=== PATIENT | female | born 1980 | race Caucasian/White ===

== ENCOUNTER 2021-01-01 08:33 | Inpatient (IN) | payer MEDICAID, OTHER ==
[2021-01-01] MEDS ORDERED: Acetaminophen 500 MG Tab PO ONE (08:45)
[2021-01-01] MEDS ORDERED: Dextrose 5%-Lactated Ringers 1,000 ML IV SCH (08:45)
[2021-01-01] MEDS ORDERED: Bupivacaine 0.5% 50 ML MDV ONE ×2 (09:00→09:01)
[2021-01-01] MEDS ORDERED: Meropenem 500 MG SDV ONE (09:00)
[2021-01-01] MEDS ORDERED: Lidocaine 1% with EPINEPHrine 1:100,000 50 ML MDV ONE (09:00)
[2021-01-01] MEDS ORDERED: Propofol 200 MG/20 ML SDV ONE (09:29)
[2021-01-01] MEDS ORDERED: Succinylcholine 200 MG/10 ML MDV ONE (09:29)
[2021-01-01] MEDS ORDERED: Neostigmine Methylsulfate 1 MG/ML 5 ML Syringe ONE (09:29)
[2021-01-01] MEDS ORDERED: Rocuronium 50 MG/5 ML Vial ONE (09:29)
[2021-01-01] MEDS ORDERED: Ondansetron 4 MG/2 ML SDV ONE (09:29)
[2021-01-01] MEDS ORDERED: fentaNYL 250 MCG/5 ML SDV ONE ×2 (09:29→12:30)
[2021-01-01] MEDS ORDERED: Glycopyrrolate 0.2 MG/ML 5 ML MDV ONE (09:29)
[2021-01-01] MEDS ORDERED: Dexamethasone 4 MG/ML SDV ONE (09:29)
[2021-01-01] MEDS: cefOXitin 2 GM in Sodium Chloride 0.9% 50 ML IV ONE ×2 (09:40→11:51)
--- NOTE | 2021-01-01 09:58 | PCM.HP.2 ---
H&P History of Present Illness - General Date of Service: 01/01/21 Source of Information: Patient, EMS Notes Reviewed History Limitations: Reports: No Limitations - History of Present Illness Initial Comments - Free Text/Narative: Gisell was transferred by ambulance for a Volvulus. 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 She has had a C Section and an Open Repair of Incisional Hernia with mesh about 3 - 4 years ago. Reports sudden onset of pain early this morning but states she felt a little more indigestion in the past 4 days. Onset of Symptoms: Reports: Today Symptom Onset Date: 01/01/21 Duration of Symptoms: Reports: Hour(s): Location: Reports: Abdomen Quality: Reports: Pressure, Sharp, Stabbing, Throbbing Severity: Severe Improves with: Reports: Medication Worsens with: Reports: None Context: Reports: Sick Contact Associated Symptoms: Reports: Nausea/Vomiting, Weakness Abdomen Pain Score (Numeric/FACES): 7 - Related Data Allergies/Adverse Reactions: Allergies Allergy/AdvReac Type Severity Reaction Status Date / Time NSAIDS (Non-Steroidal Allergy Other Verified 01/01/21 08:46 Anti-Inflamma Home Medications: Home Meds Acetaminophen 325 mg PO Q4H PRN 01/01/21 [History] Amphetamine/Dextroamphetamine [Adderall XR] 15 mg PO BID 01/01/21 [History] Cholecalciferol (Vitamin D3) [Vitamin D] 1 tab PO BID 01/01/21 [History] Cholecalciferol (Vitamin D3) [Vitamin D] 5,000 units PO DAILY 01/01/21 [History] DULoxetine [Cymbalta] 60 mg PO DAILY 01/01/21 [History] Dextrose [Glucose] 4 gm PO ASDIRECTED PRN 01/01/21 [History] Ferrous Sulfate 325 mg PO BID 01/01/21 [History] Gabapentin [Neurontin] 1,200 mg PO TID 01/01/21 [History] Lidocaine 5% [Lidoderm 5%] 1 applic TOP DAILY 01/01/21 [History] Lisdexamfetamine [Vyvanse] 60 mg PO DAILY 01/01/21 [History] Omeprazole 20 mg PO BID 01/01/21 [History] QUEtiapine [SEROquel] 100 mg PO BEDTIME 01/01/21 [History] SUMAtriptan [Imitrex] 100 mg PO Q2H PRN 01/01/21 [History] Sennosides/Docusate Sodium [Senokot-S Tablet] 1 tab PO BID PRN 01/01/21 [History] Sucralfate [Carafate] 1 gm PO Q6H PRN 01/01/21 [History] Topiramate [Topamax] 25 mg PO BID 01/01/21 [History] busPIRone [Buspar] 15 mg PO TID 01/01/21 [History] hydrOXYzine HCL [Hydroxyzine HCl] 50 mg PO TID 01/01/21 [History] tiZANidine [Zanaflex] 8 mg PO Q8H PRN 01/01/21 [History] Past Medical History Gastrointestinal History: Reports: None 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 L4, L5, S1 Neurological History: Reports: Migraines, Seizure Psychiatric History: Reports: ADD, ADHD, Addiction, Anxiety, Depression, OCD, Panic Attack, PTSD Endocrine/Metabolic History: Reports: Other (See Below) Other Endocrine/Metabolic History: hypoglycemia that leads to seizures Hematologic History: Reports: Anemia - Infectious Disease History Infectious Disease History: Reports: Chicken Pox - Past Surgical History Head Surgeries/Procedures: Reports: None GI Surgical History: Reports: Bariatric Procedure, Hernia, Abdominal Other GI Surgeries/Procedures: RNY 2005 Endocrine Surgical History: Reports: None Neurological Surgical History: Reports: None Musculoskeletal Surgical History: Reports: None Social & Family History - Family History Family Medical History: No Pertinent Family History - Tobacco Use Tobacco Use Status *Q: Current Every Day Tobacco User Years of Tobacco use: 8 Packs/Tins Daily: 0.5 - Caffeine Use Caffeine Use: Reports: Soda - Recreational Drug Use Recreational Drug Use: No H&P Review of Systems - Review of Systems: Review Of Systems: Comprehensive ROS is negative, except as noted in HPI. Exam - Exam Exam: See Below - Vital Signs Vital Signs: Last Vital Signs Temp 97.7 F 01/01/21 08:57 Pulse 92 01/01/21 08:45 Resp 16 01/01/21 08:57 BP 129/91 H 01/01/21 08:57 Pulse Ox 92 L 01/01/21 08:57 Weight: 159 lb 9.6 oz - Exam General: Moderate Distress HEENT: Conjunctiva Clear, Hearing Intact, Mucosa Moist & [place] Neck: Supple, Trachea Midline Lungs: Clear to Auscultation, Normal Respiratory Effort Cardiovascular: Regular Rate, Regular Rhythm GI/Abdominal Exam: Distended (slightly ), Tender (left upper, mid and lower quadrants. ) (Female) Exam: Deferred Rectal (Female) Exam: Deferred Back Exam: Normal Inspection, Full Range of Motion Extremities: Normal Inspection, Normal Range of Motion, No Pedal Edema Skin: Warm, Dry, Intact Neurological: Cranial Nerves Intact, Reflexes Equal Bilateral, Normal Gait Neuro Extensive - Mental Status: Alert, Oriented x3 Neuro Extensive - Motor, Sensory, Reflexes: Normal Gait Psychiatric: Alert, Normal Affect, Normal Mood - Patient Data Lab Results Last 24 hrs: Laboratory Results - last 24 hr 01/01/21 01/01/21 01/01/21 Range/Units 08:47 08:47 08:47 Magnesium 1.7 L (1.8-2.4) mg/dL Ferritin 4 L (8-388) ng/ml Vitamin B12 147 L (193-986) pg/ml Vitamin D 25-Hydroxy (30-100) ng/mL Folate (8.6-58.9) ng/ml HCG, Qual 01/01/21 01/01/21 01/01/21 Range/Units 08:47 08:47 09:23 Magnesium (1.8-2.4) mg/dL Ferritin (8-388) ng/ml Vitamin B12 (193-986) pg/ml Vitamin D 25-Hydroxy 29.4 L (30-100) ng/mL Folate 16.4 (8.6-58.9) ng/ml HCG, Qual Negative Sepsis Event Note - Focused Exam Vital Signs: Vital Signs Temp Pulse Resp BP Pulse Ox 01/01/21 08:57 97.7 F 16 129/91 H 92 L 01/01/21 08:45 97.7 F 92 16 129/91 H 97 - Problem List (1) Volvulus of colon SNOMED Code(s): 6199787 ICD Code: K56.2 - VOLVULUS Status: Acute Current Visit: Yes Problem List Initiated/Reviewed/Updated: Yes Orders Last 24hrs: Active Orders 24 hr Category Date Time Status COPPER, SERUM Stat Lab 01/01/21 08:47 Received VITAMIN A, SERUM Stat Lab 01/01/21 08:47 Received VITAMIN B1 (THIAMINE), BLOOD Stat Lab 01/01/21 08:47 Received ZINC, PLASMA OR SERUM Stat Lab 01/01/21 08:47 Received Dextrose 5%-Lactated Ringers 1,000 ml Med 01/01/21 08:45 Active IV ASDIRECTED Ketamine [Ketalar] Med 01/01/21 10:30 Active 26 mg IV ASDIRECTED Ketamine [Ketalar] 50 mg Med 01/01/21 10:30 Active Sodium Chloride 0.9% [Normal Saline] 49.5 ml IV ASDIRECTED Magnesium Sulfate [Magnesium Sulfate 50%] 2 gm Med 01/01/21 10:30 Active Sodium Chloride 0.9% [Normal Saline] 100 ml IV ASDIRECTED Magnesium Sulfate [Magnesium Sulfate 50%] 2.3 gm Med 01/01/21 10:30 Active Sodium Chloride 0.9% [Normal Saline] 250 ml IV ONETIME Ropivacaine [Naropin 0.5%] 36 ml Med 01/01/21 10:30 Active dexAMETHasone [Decadron] 8 mg EPINEPHrine [Adrenalin] 0.4 mg Sodium Chloride 0.9% [Normal Saline] 41.6 ml NERVRT ASDIRECTED cefOXitin [Mefoxin] 2 gm Med 01/01/21 11:00 Active Sodium Chloride 0.9% [Normal Saline] 50 ml IV ONETIME Sequential Compression Device [OM.PC] Stat Oth 01/01/21 08:37 Ordered EKG 12 Lead [EK] Stat Ther 01/01/21 08:45 Ordered Medication Orders Ropivacaine 36 ml/Dexamethasone 8 mg/Epinephrine HCl 0.4 mg/ Sodium Chloride 41.6 ml 0 ml NERVRT ASDIRECTED ERLIN Dextrose/Lactated Ringer's (Dextrose 5%-Lactated Ringers) 1,000 mls @ 100 mls/hr IV ASDIRECTED ERLIN Last Admin: 01/01/21 09:23 Dose: 100 mls/hr Documented by: EDWARD Cefoxitin Sodium 2 gm/ Sodium (Chloride) 50 mls @ 100 mls/hr IV ONETIME ONE Stop: 01/01/21 11:29 Last Admin: 01/01/21 09:40 Dose: 100 mls/hr Documented by: [id number] Ketamine HCl 50 mg/ Sodium (Chloride) 50 mls @ 15.6 mls/hr IV ASDIRECTED ERLIN Magnesium Sulfate 2 gm/ Sodium (Chloride) 104 mls @ 208 mls/hr IV ASDIRECTED ERLIN Magnesium Sulfate 2.3 gm/ (Sodium Chloride) 254.6 mls @ 31.825 mls/hr IV ONETIME ONE Stop: 01/01/21 18:29 Ketamine HCl (Ketamine 500 Mg/5 Ml Mdv) 26 mg IV ASDIRECTED ERLIN Assessment: Volvulus/Partial Small Bowel Obstruction SP RNY Gastric Bypass Surgery Plan: Sheduled/Consent for Exploratory Laparotomy for Release of Partial Small Bowel Obstruction and Voluvus. Case to Follow 01/01/21 NPO General Anesthesia Allan Johnson MD Admit as inpatient Length of stay at least 3 nights and 4 days pending recovery from surgery Lianne Joyce 01/01/2021
[2021-01-01] MEDS ORDERED: Naloxone 0.4 MG/ML SDV IV PRN (10:00)
[2021-01-01] MEDS: HYDROmorphone/Normal Saline 15 MG/30 ML PCA IV PRN (10:08)
[2021-01-01] MEDS ORDERED: Ketamine 500 MG/5 ML MDV IV SCH (10:30)
[2021-01-01] MEDS ORDERED: Ketamine 50 MG in Sodium Chloride 0.9% 49.5 ML IV SCH (10:30)
[2021-01-01] MEDS ORDERED: Magnesium Sulfate 2 GM in Sodium Chloride 0.9% 100 ML IV SCH (10:30)
[2021-01-01] MEDS ORDERED: MAGNESIUM SULFATE IV ONE (10:30)
[2021-01-01] MEDS ORDERED: Ropivacaine 36 ML, dexAMETHasone 8 MG, EPINEPHrine 0.4 MG, Sodium Chloride 0.9% 41.6 ML NERVRT SCH ×4 (10:30)
[2021-01-01] MEDS ORDERED: SODIUM CHLORIDE 0.9% IV ONE (10:30)
[2021-01-01] MEDS ORDERED: fentaNYL 100 MCG/2 ML SDV IVPUSH ONE (13:58)
[2021-01-01] MEDS ORDERED: hydrOXYzine HCL 100 MG/2 ML SDV IM ONE (13:58)
[2021-01-01] MEDS: Dextrose 5%-Lactated Ringers 1,000 ML IV SCH ×2 (15:57→23:38)
[2021-01-01] MEDS ORDERED: Labetalol 20 MG/4 ML Syringe IVPUSH PRN (16:00)
[2021-01-01] MEDS ORDERED: Albuterol/Ipratropium 3.0-0.5 MG/3 ML Neb Soln INH PRN (16:00)
[2021-01-01] MEDS ORDERED: Ondansetron 4 MG/2 ML SDV IVPUSH PRN (16:00)
[2021-01-01] MEDS ORDERED: Acetaminophen 500 MG Tab PO PRN (16:00)
[2021-01-01] MEDS ORDERED: Calcium Gluconate 10% 1 GM/10 ML SDV IVPUSH PRN (16:00)
[2021-01-01] MEDS ORDERED: Metoclopramide 10 MG/2 ML SDV IVPUSH PRN (16:00)
[2021-01-01] MEDS ORDERED: diphenhydrAMINE 50 MG/ML SDV IVPUSH PRN (16:00)
[2021-01-01] MEDS ORDERED: MVI, Adult with Vitamin K 10 ML, Thiamine 200 MG, Zinc/Copper/Manganese/Selenium 1 ML i... IV SCH ×4 (16:30)
[2021-01-01] MEDS ORDERED: Pantoprazole 40 MG Vial IVPUSH SCH (17:00)
[2021-01-01] MEDS: cefOXitin 2 GM in Sodium Chloride 0.9% 50 ML IV SCH (17:10)
[2021-01-01] MEDS: Acetaminophen 500 MG Tab PO SCH (17:12)
[2021-01-01] MEDS: Gabapentin 400 MG Cap PO SCH (21:30)
[2021-01-01] MEDS: Albuterol/Ipratropium 3.0-0.5 MG/3 ML Neb Soln INH SCH (21:30)
[2021-01-01] MEDS: QUEtiapine 25 MG Tab PO SCH (21:31)
[2021-01-01] MEDS: Topiramate 25 MG Tab PO SCH (21:31)
[2021-01-02] MEDS: cefOXitin 2 GM in Sodium Chloride 0.9% 50 ML IV SCH ×4 (00:23→18:21)
[2021-01-02] MEDS: Acetaminophen 500 MG Tab PO SCH ×3 (02:07→19:43)
[2021-01-02] MEDS ORDERED: Iopamidol 612 MG/ML 50 ML SDV PO STA (03:12)
[2021-01-02] MEDS: hydrOXYzine HCL 100 MG/2 ML SDV IM PRN ×2 (04:01→19:52)
[2021-01-02] MEDS: Dextrose 5%-Lactated Ringers 1,000 ML IV SCH (06:20)
[2021-01-02] MEDS: Albuterol/Ipratropium 3.0-0.5 MG/3 ML Neb Soln INH SCH ×4 (07:12→21:37)
[2021-01-02] MEDS: HYDROmorphone/Normal Saline 15 MG/30 ML PCA IV PRN (07:42)
[2021-01-02] MEDS ORDERED: Ondansetron 4 MG Tab.DIS PO PRN (07:51)
[2021-01-02] MEDS ORDERED: Dextrose 5%-Lactated Ringers 1,000 ML IV SCH (08:00)
[2021-01-02] MEDS: Topiramate 25 MG Tab PO SCH ×2 (08:30→21:37)
[2021-01-02] MEDS: Gabapentin 400 MG Cap PO SCH ×3 (08:30→21:37)
[2021-01-02] MEDS: DULoxetine 30 MG Cap PO SCH (08:30)
[2021-01-02] MEDS: Cyanocobalamin (Vitamin B12) 1,000 MCG/ML SDV IM SCH (08:31)
[2021-01-02] MEDS: SCOPOLAMINE PATCH CHECK TOP SCH (08:31)
--- NOTE | 2021-01-02 09:14 | CR ---
UGI Limited HISTORY: Postbariatric surgery FINDINGS: Patient swallowed water-soluble contrast. Upright views of the abdomen show no evidence of extravasation or obstruction. IMPRESSION: Status post bariatric surgery No extravasation or obstruction seen
--- NOTE | 2021-01-02 09:35 | PN ---
DATE OF SERVICE: 01/02/2021 SUBJECTIVE: Gisell is postoperative day #1. Pain has been controlled with the SUPERVISOR ORDER TAKERS. Vital signs have been stable. Oral intake 560. Urine output via Calzada catheter is 1331. Labs this morning showed a hemoglobin of 8.3. REVIEW OF SYSTEMS: Remainder of review of systems negative for any pertinent positives and negatives. OBJECTIVE: GENERAL: Gisell Cox is a pleasant 40-year-old female. She is quite sleepy, but asked questions appropriately. VITAL SIGNS: TPR is 97.3, 84, 15, blood pressure 126/81. HEENT: Negative. NECK: Supple. HEART: Regular rate and rhythm. LUNGS: Clear. ABDOMEN: Abdominal binder is on. Dressing is dry and intact with Aquacel. EXTREMITIES: Without peripheral edema. ASSESSMENT: 1. Exploratory laparotomy with lysis of adhesions. a. Reduction of small bowel volvulus with closure of internal hernia. b. Small bowel revision. c. Small bowel strictureplasty. d. Removal of peritoneal nodule over small bowel and mesh. e. Placement of Interceed mesh x2. POSTOPERATIVE DIAGNOSES: 1. Small bowel obstruction secondary to small bowel volvulus. 2. Persistent ischemic segment of the biliary pancreatic limb at the jejunojejunostomy. 3. Peritoneal nodule 3 cm over small bowel at the jejunojejunostomy. 4. Potentially contaminated intraperitoneal mesh. 5. Shortened small bowel at takedown of the jejunostomy. 6. Extensive intraperitoneal adhesions. 7. Date of procedure: 01/01/2021. Surgeon: Allan Johnson MD. 8. Low ferritin at 4, receiving iron infusion. 9. Hemoglobin 8.3. PLAN: 1. Discontinue Calzada catheter. 2. Decrease IV to 100 mL per hour. 3. Type and screen 2 units of packed red blood cells. 4. Give 1 unit of packed red blood cells. 5. May shower. 6. Step 2 gastric bypass diet without cereal. 7. Check CMP, CBC, mag, phos in a.m. 8. We will evaluate p.r.n. or in a.m. Lianne Akhtar PA-C /[id number]
[2021-01-02] MEDS: Magnesium Sulfate/Water 2 GM/50 ML BAG IV SCH ×3 (12:23→21:43)
[2021-01-02] MEDS: Sodium Ferric Gluconate Cmplex 250 MG in Sodium Chloride 0.9% 100 ML IV SCH (14:10)
--- NOTE | 2021-01-02 15:52 | PCM.EKG ---
#1 Interpretation EKG Date: 01/01/21 Time: 08:53 Rhythm: NSR Rate (Beats/Min): 72 [place]: Normal P-Wave: Present QRS: Normal ST-T: Normal QT: Normal Comparison: NA - No Prior EKG
[2021-01-02] MEDS ORDERED: MVI, Adult with Vitamin K 10 ML, Thiamine 200 MG, Zinc/Copper/Manganese/Selenium 1 ML i... IV SCH ×4 (16:00)
[2021-01-02] MEDS: Pantoprazole 40 MG Delayed-Release Granules 1 Packet PO SCH (17:41)
[2021-01-02] MEDS: QUEtiapine 25 MG Tab PO SCH (21:37)
[2021-01-03] MEDS: cefOXitin 2 GM in Sodium Chloride 0.9% 50 ML IV SCH ×2 (00:07→05:43)
[2021-01-03] MEDS ORDERED: Lactated Ringers 750 ML IV ONE (00:10)
[2021-01-03] MEDS: Acetaminophen 500 MG Tab PO SCH ×3 (02:00→17:42)
[2021-01-03] MEDS: Magnesium Sulfate/Water 2 GM/50 ML BAG IV SCH ×5 (03:41→22:27)
[2021-01-03] MEDS ORDERED: Lactated Ringers 500 ML IV ONE (04:00)
[2021-01-03] MEDS: Albuterol/Ipratropium 3.0-0.5 MG/3 ML Neb Soln INH SCH ×4 (06:59→22:19)
[2021-01-03] MEDS ORDERED: Cyanocobalamin (Vitamin B12) 1,000 MCG/ML SDV IM ONE (07:55)
[2021-01-03] MEDS: Docusate Sodium 100 MG Cap PO SCH ×2 (08:38→22:25)
[2021-01-03] MEDS: DULoxetine 30 MG Cap PO SCH (08:38)
[2021-01-03] MEDS: Multivitamins with Iron Tab.Chew CHEW SCH ×2 (08:38→22:25)
[2021-01-03] MEDS: Bisacodyl 5 MG Tab PO SCH ×2 (08:38→22:25)
[2021-01-03] MEDS: Gabapentin 400 MG Cap PO SCH ×3 (08:38→22:25)
[2021-01-03] MEDS: Topiramate 25 MG Tab PO SCH ×2 (08:39→22:25)
[2021-01-03] MEDS: SCOPOLAMINE PATCH CHECK TOP SCH (08:39)
[2021-01-03] MEDS: Cyanocobalamin (Vitamin B12) 1,000 MCG/ML SDV IM SCH (08:39)
[2021-01-03] MEDS ORDERED: Thiamine 100 MG in Sodium Chloride 0.9% 100 ML IV ONE (10:00)
[2021-01-03] MEDS: HYDROmorphone/Normal Saline 15 MG/30 ML PCA IV PRN (10:29)
--- NOTE | 2021-01-03 10:45 | PN ---
DATE OF SERVICE: 01/03/2021 SUBJECTIVE: Gisell had difficulty voiding. She was bladder scanned twice, was given 2 boluses of lactated Ringer's, and this morning she did void 550 mL. Labs this morning; hemoglobin 9.2, calcium 7.7, albumin 1.9, protein 4.4. She had 1 unit of packed red blood cells yesterday. Vital signs have been stable. Oral intake 1150. Urine output as above. REVIEW OF SYSTEMS: Remainder of review of systems negative for any pertinent positives and negatives. OBJECTIVE: GENERAL: Gisell Cox is a pleasant 40-year-old female. She is alert and orientated. VITAL SIGNS: TPR is 97.3, 91, 15, blood pressure 121/77. HEENT: Negative. NECK: Supple. HEART: Regular rate and rhythm. LUNGS: Clear. ABDOMEN: Dressings dry and intact. Abdominal binder is on. EXTREMITIES: Without peripheral edema. ASSESSMENT: 1. Exploratory laparotomy with lysis of adhesions. a. Reduction of small bowel volvulus with closure of internal hernia. b. Small-bowel revision. c. Small bowel stricture plasty. d. Removal of peritoneal nodule over small bowel and mesh. e. Placement of Interceed mesh x2. POSTOPERATIVE DIAGNOSES: 1. Small-bowel obstruction secondary to small bowel volvulus. 2. Persistent ischemic segment of biliary pancreatic limb at the jejunojejunostomy. 3. Peritoneal nodule 3 cm over small bowel of the jejunostomy. 4. Potentially contaminated intraperitoneal mesh. 5. Shortened small-bowel at takedown of the jejunostomy. 6. Extensive intraabdominal adhesions. Date of procedure: 01/01/2021. Surgeon: Allan Johnson MD. 7. Low ferritin at 4 receiving iron infusion. 8. Hemoglobin 8.3, received 1 unit of packed red blood cells. PLAN: 1. Albumin 50 g IV daily. 2. B12 1000 mcg IM today. 3. Thiamine 100 mg IV today. 4. MVI chewable complete b.i.d. oral. 5. Check CBC, CMP, mag, phos in a.m. 6. Colace 100 mg p.o. b.i.d. 7. Dulcolax 10 mg p.o. b.i.d. 8. Continue ambulation and use of incentive spirometer. 9. We will evaluate p.r.n. or in a.m. [facility] /[id number]
[2021-01-03] MEDS: Pantoprazole 40 MG Delayed-Release Granules 1 Packet PO SCH ×2 (14:52→16:06)
[2021-01-03] MEDS: Sodium Ferric Gluconate Cmplex 250 MG in Sodium Chloride 0.9% 100 ML IV SCH ×2 (15:08→16:03)
[2021-01-03] MEDS: QUEtiapine 25 MG Tab PO SCH (22:26)
[2021-01-04] MEDS: Acetaminophen 500 MG Tab PO SCH ×3 (02:58→17:06)
[2021-01-04] MEDS: Magnesium Sulfate/Water 2 GM/50 ML BAG IV SCH (03:05)
[2021-01-04] MEDS: Albuterol/Ipratropium 3.0-0.5 MG/3 ML Neb Soln INH SCH ×4 (07:19→20:35)
[2021-01-04] MEDS: Gabapentin 400 MG Cap PO SCH ×3 (08:18→20:34)
[2021-01-04] MEDS: Topiramate 25 MG Tab PO SCH ×2 (08:18→20:35)
[2021-01-04] MEDS: DULoxetine 30 MG Cap PO SCH (08:18)
[2021-01-04] MEDS: Cyanocobalamin (Vitamin B12) 1,000 MCG/ML SDV IM SCH (08:19)
[2021-01-04] MEDS: Bisacodyl 5 MG Tab PO SCH ×2 (08:19→20:34)
[2021-01-04] MEDS: Docusate Sodium 100 MG Cap PO SCH ×2 (08:19→20:34)
[2021-01-04] MEDS: Multivitamins with Iron Tab.Chew CHEW SCH ×2 (08:19→20:34)
[2021-01-04] MEDS: oxyCODONE 5 MG Tab PO PRN ×3 (08:23→20:33)
[2021-01-04] MEDS: Cyclobenzaprine 10 MG Tab PO PRN ×2 (10:40→18:44)
--- NOTE | 2021-01-04 12:09 | PN ---
DATE OF SERVICE: 01/04/2021 SUBJECTIVE: Gisell has had 1070 in and urine output 1925. Hemoglobin this morning was 7.6. She has been up ambulating. Pain has been controlled with AGRICULTURAL SERVICE WORKER. REVIEW OF SYSTEMS: Remainder of review of systems negative for any pertinent positives or negatives. OBJECTIVE: GENERAL: Gisell Cox is a pleasant 40-year-old female. She is alert and orientated. VITAL SIGNS: TPR 97.9, 89, 18, and blood pressure 122/76. HEENT: Negative. NECK: Supple. HEART: Regular rate and rhythm. LUNGS: Clear. ABDOMEN: Aquacel dressing is on. Abdominal binder is on. EXTREMITIES: Without peripheral edema. ASSESSMENT: 1. Exploratory laparotomy with lysis of adhesions. a. Reduction of small bowel volvulus and closure of internal hernia. b. Small bowel revision. c. Small bowel stricture plasty. d. Removal of peritoneal nodule over small bowel and mesh. e. Placement of Interceed mesh x2. POSTOPERATIVE DIAGNOSES: 1. Small bowel obstruction secondary to small bowel volvulus. 2. Persistent ischemic segment of biliary pancreatic limb at the jejunostomy. Peritoneal nodule 3 cm over small bowel jejunostomy. 3. Potentially contaminated intraperitoneal mesh. 4. Shortened small bowel at takedown of the jejunostomy. 5. Extensive intraabdominal adhesions. 6. Date of procedure, 01/01/2021. Surgeon is Dr. Allan Johnson. 7. Low ferritin at 4, received 2 iron gluconate infusions. 8. Hemoglobin 8.3, received 1 units of packed red blood cells. 9. Hemoglobin of 7.6 on 01/04/2021, received 1 unit of packed red blood cells. PLAN: 1. Give 1 unit of packed red blood cells today. 2. DC AGRICULTURAL SERVICE WORKER. 3. DC continuous pulse ox. 4. Oxycodone 5 mg q.6 hours p.r.n. pain. IV may be turned to TKO after blood is in. 5. Check CBC, CMP, mag, and phos in a.m. 6. We will evaluate p.r.n. or in a.m. and plan discharge in a.m. Lianne Akhtar PA-C /[id number]
[2021-01-04] MEDS: Pantoprazole 40 MG Delayed-Release Granules 1 Packet PO SCH (15:53)
[2021-01-04] MEDS ORDERED: Dextrose 5%-Lactated Ringers 1,000 ML IV SCH (16:00)
[2021-01-04] MEDS: QUEtiapine 25 MG Tab PO SCH (20:35)
[2021-01-05] MEDS: Acetaminophen 500 MG Tab PO SCH ×2 (02:29→10:31)
[2021-01-05] MEDS: Cyclobenzaprine 10 MG Tab PO PRN ×2 (02:30→10:30)
[2021-01-05] MEDS: oxyCODONE 5 MG Tab PO PRN ×3 (02:30→13:44)
[2021-01-05] MEDS: Albuterol/Ipratropium 3.0-0.5 MG/3 ML Neb Soln INH SCH ×2 (07:20→11:19)
[2021-01-05] MEDS: Gabapentin 400 MG Cap PO SCH (08:45)
[2021-01-05] MEDS: Docusate Sodium 100 MG Cap PO SCH (08:46)
[2021-01-05] MEDS: Bisacodyl 5 MG Tab PO SCH (08:46)
[2021-01-05] MEDS: Topiramate 25 MG Tab PO SCH (08:46)
[2021-01-05] MEDS: Multivitamins with Iron Tab.Chew CHEW SCH (08:46)
[2021-01-05] MEDS: DULoxetine 30 MG Cap PO SCH (08:46)
[2021-01-05] MEDS: Cyanocobalamin (Vitamin B12) 1,000 MCG/ML SDV IM SCH (08:47)
--- NOTE | 2021-01-05 10:21 | DISCH ---
ADMISSION DIAGNOSES: 1. Partial small bowel obstruction, volvulus, status post Angelina-en-Y gastric bypass surgery, unspecified surgical malabsorption. 2. B12 deficiency. 3. Osteoarthritis. 4. Migraine headache. 5. Seizure disorder. 6. Attention deficit disorder. 7. Attention deficit hyperactivity disorder. 8. Addiction. 9. Anxiety. 10.Depression. 11.Obsessive-compulsive disorder. 12.Panic attacks. 13.Posttraumatic stress disorder. DISCHARGE DIAGNOSES: 1. Exploratory laparotomy with lysis of adhesions. a. Reduction of small bowel volvulus and closure of internal hernia. b. Small bowel revision. c. Small bowel strictureplasty. d. Removal of peritoneal nodule over small bowel and mesh. e. Placement of Interceed mesh x2. 2. Postoperative diagnoses. a. Small bowel obstruction secondary to small bowel volvulus. b. Persistent ischemic segment of the biliary pancreatic limb at the jejunostomy. c. Peritoneal nodule 3 cm over small bowel jejunostomy. d. Potentially contaminated intraperitoneal mesh. e. Shortened small bowel at takedown of the jejunostomy. f. Extensive intraabdominal adhesions. g. Date of procedure 01/01/2021. Surgeon: Allan Johnson MD. 3. Low ferritin at 4. Received 2 iron gluconate infusions. 4. Anemia. Hemoglobin 8.3, received 1 unit of packed red blood cells. Hemoglobin of 7.6 on 01/04/2021, received 1 unit of packed red blood cells. Hemoglobin of 7.7 on day of discharge 01/05/2021, received 1 unit of packed red blood cells. HISTORY: Gisell Cox is a pleasant 40-year-old female who was transferred via ambulance for a partial small bowel obstruction and volvulus. After preoperative evaluation and discussion of possible risks and possible complications, she wished to proceed with surgical procedure. HOSPITAL COURSE: Gisell had her emergent surgery on 01/01/2021. She had no operative complications. On postoperative day 1, she received an iron infusion on 2 consecutive days. On postoperative day 1, Calzada was discontinued, IV decreased, and she did receive the first unit of packed red blood cells and started on a step 2 gastric bypass diet. On postoperative day 2, she was given her second unit of packed red blood cells. Albumin 50 g IV was given along with vitamin B12 at 1000 mcg IM, thiamine 100 mg IV, and she was started on bowel stimulation. On postoperative day 3, she did have a bowel movement, received another unit of packed red blood cells, and she was able to be discharged to home. Pain was well managed on a PRESS FEEDER of Dilaudid, and then she was changed to oral oxycodone and scheduled Tylenol. Vital signs remained stable. Oral intake adequate, output adequate. She did receive dietary instructions. PHYSICAL EXAMINATION: GENERAL: Gisell Cox is a pleasant 40-year-old female. VITAL SIGNS: Height is 5 feet 3 inches, weight is 159 pounds. BMI 28.3. TPR is 98.1, 94, and 14. Blood pressure 138/74. HEENT: Negative. NECK: Supple. HEART: Regular rate and rhythm. LUNGS: Clear. ABDOMEN: Aquacel dressings on. Abdominal binder is on. EXTREMITIES: Without peripheral edema. DISPOSITION: Discharged to home. CONDITION: Stable and improving. FOLLOWUP: Followup appointment with Lianne Akthar PA-C, on 01/12/2021 at 11 a.m. She is to have her CBC checked at 10:30 a.m. HOME MEDICATIONS: Oxycodone 5 mg p.o. q.6 hours p.r.n. pain #28, Tylenol 1000 mg p.o. q.8 hours scheduled for pain. She is to resume home medication of tizanidine 8 mg p.o. q.8 hours p.r.n., Imitrex 100 mg p.o. q.2 hours p.r.n. migraine headaches, Carafate 1 g p.o. q.6 hours p.r.n., Senokot-S 1 tablet p.o. b.i.d. p.r.n., Lidoderm patch topical daily, Topamax 25 mg p.o. b.i.d., Vyvanse 60 mg p.o. daily, omeprazole 20 mg p.o. b.i.d., hydroxyzine 50 mg p.o. t.i.d., BuSpar 15 mg p.o. t.i.d., Adderall XR 15 mg p.o. b.i.d., Cymbalta 60 mg p.o. daily, Seroquel 100 mg p.o. at bedtime, and Neurontin 1200 mg p.o. t.i.d. DIET: Step 2 gastric bypass diet with no cereal and to drink 8 to 10 glasses of water a day. ACTIVITY: No lifting greater than 10 pounds for 6 weeks. OTHER ACTIVITY: Walk 6 times daily inside your home. Driving: Do not drive for 1 week. Shower/bathing: May shower, keep operative site clean and dry. Wear abdominal binder for 6 weeks if tolerated. Take off Aquacel dressing on Friday01/07/2021. Notify provider if any fever, increased pain, swelling, redness, drainage, nausea, or vomiting. Use incentive spirometer 10 times every hour while awake. /[id number]
--- NOTE | 2021-01-15 12:42 | OR ---
DATE OF PROCEDURE: 01/01/2021 SURGEON: Allan Johnson MD PREOPERATIVE DIAGNOSIS: Small bowel obstruction. POSTOPERATIVE DIAGNOSES: 1. Small bowel obstruction secondary to small bowel volvulus. 2. Persistent ischemia of segment of biliopancreatic limb adjacent to jejunojejunostomy. 3. Peritoneal nodule over small bowel at jejunojejunostomy. 4. Potentially contaminated intraperitoneal mesh. 5. Strictured segment of small bowel after takedown of jejunojejunostomy. 6. Extensive intraperitoneal adhesions. PROCEDURES PERFORMED: Exploratory laparotomy with lysis of adhesions: 1. Reduction of small bowel volvulus and closure of internal hernia (45092). 2. Small bowel resection (27371). 3. Small bowel stricturoplasty (74436). 4. Removal of peritoneal nodule overlying small bowel at jejunojejunostomy (31454). 5. Partial removal of intraperitoneal mesh (23388). 6. Placement of Interceed mesh x2 to displace pelvic and abdominal wall from underlying viscera to limit recurrent adhesion formation (20725). ANESTHESIA: General. SOFTWARE APPLICATIONS DEVELOPER: Lianne Akhtar PA-C INDICATIONS FOR PROCEDURE: A 40-year-old female status post Angelina-en-Y gastric bypass in 2005 who was transferred from [place], [place], with a picture of small bowel obstruction. After initial hydration and preoperative antibiotics, the patient is to undergo limited exploratory laparotomy with questionable problems. This would include potential small bowel resection. Potential risks including bleeding, infection, injury to underlying viscera, leaks from any GI tract closures, and possible recurrence of the problem over time were all reviewed, and the patient wishes to proceed. DETAILS OF PROCEDURE: The patient was taken to the operating room, and after general endotracheal anesthesia was induced, a Calzada catheter was inserted and the abdomen prepped and draped. A midline incision from the umbilicus up toward the xiphoid was made and carried down through the skin and subcutaneous tissue. The fascia was then divided and the lower aspect of the incision portion of the intraperitoneal mesh was encountered, and this was divided. This, at some point, became potentially contaminated, and this section of the mesh was removed. The remaining mesh appeared to be well-incorporated by soft tissue and was felt best left in place, knowing that there is some chance of infection by which removal would almost certainly result in a subsequent hernia formation. Extensive adhesions between the area of the mesh and the underlying viscera were taken down with a combination of blunt and cautery dissection. Upon takedown of the adhesions, the abdomen was inspected. The patient was noted to have a small bowel volvulus with migration of the biliopancreatic limb portion of the common limb in a right to left direction underneath the leaves of the jejunojejunostomy. As this was reduced, the patient was noted to have a persistent ischemic portion of the biliopancreatic limb as it came up toward the jejunojejunostomy. Additionally, there was a 2 mm nodular lesion over the jejunojejunostomy of uncertain nature. This peritoneal implant was then excised and sent for histologic evaluation. At this point, the small bowel consisting of the biliopancreatic limb as it entered the jejunojejunostomy was divided with a CHRISTIAN stapler as was that portion of the bowel somewhat proximally above where it had become ischemic, and the underlying mesentery was then divided with CHRISTIAN georgi as well, and this segment was also delivered from the field. The patient was noted to have some stricturing of the small bowel at the remaining jejunojejunostomy. The bowel consisting of what had been the Angelina limb coming into the common limb was then flipped over on itself. A small enterotomy was made and a stricturoplasty accomplished with internal firing of the Endo-CHRISTIAN 60 mm stapler. The common limb was closed transversely with the same stapler and the angles anastomosed and reinforced with some 3-0 Vicryl stitch, and in this case, no mesenteric defect was present. GI tract continuity was then accomplished with anastomosis between the biliopancreatic limb and the small bowel roughly 20 cm to the original jejunojejunostomy, this with the same sequence of georgi as outlined above, and at that point, the mesenteric defect at that level as well as the jejunojejunostomy were closed with 2-0 silk stitch. No further problems were noted at this point. The abdomen was irrigated with meropenem-containing saline solution. Two segments of Interceed mesh were then placed underneath the incision, and from there, down toward the pelvis to displace this viscera from those surfaces and limit recurrent adhesion formation. The midline fascia was then approximated with a #2 Vicryl stitch, subcutaneous tissue with 2 layers of 3-0 and 4-0 Vicryl stitch, and the skin with georgi. Prior to closure, bilateral transversus abdominis plane blocks were then placed, and the patient was taken to the recovery room in satisfactory condition. Physician bilingual executive assistant, Lianne Akhtar, played an essential role in assisting in that case, helping to position the patient, retract structures as needed, as well as suturing and cutting sutures when indicated. Her presence improved patient safety and decreased operative time. Allan Johnson MD /[id number]
== END 2021-01-05 13:59 | disposition home or self-care (01) | DRG 329 ==
LOC: JP.SDS 08:33 → JP.SDSSCHI 08:33 → JP.MS 14:30 → EDSTATUS 14:44
PROVIDERS: ADMIT Surgery; ATTEND Surgery
PROC: 0DS80ZZ Reposition Small Intestine, Open Approach (ICD-10-PCS; principal; 2021-01-01)
PROC: 0DQ80ZZ Repair Small Intestine, Open Approach (ICD-10-PCS; 2021-01-01)
PROC: 0JB80ZZ Excision of Abdomen Subcutaneous Tissue and Fascia, Open Approach (ICD-10-PCS; 2021-01-01)
PROC: 0DB80ZZ Excision of Small Intestine, Open Approach (ICD-10-PCS; 2021-01-01)
PROC: 0WPF0JZ Removal of Synthetic Substitute from Abdominal Wall, Open Approach (ICD-10-PCS; 2021-01-01)
PROC: 3E0M05Z Introduction of Adhesion Barrier into Peritoneal Cavity, Open Approach (ICD-10-PCS; 2021-01-01)
PROC: 30233N1 Transfusion of Nonautologous Red Blood Cells into Peripheral Vein, Percutaneous Approach (ICD-10-PCS; 2021-01-04)
PROC: 30233N1 Transfusion of Nonautologous Red Blood Cells into Peripheral Vein, Percutaneous Approach (ICD-10-PCS; 2021-01-05)
DX: K95.89 Other complications of other bariatric procedure (principal); K56.2 Volvulus; K56.600 Partial intestinal obstruction, unspecified as to cause; K55.9 Vascular disorder of intestine, unspecified; E53.8 Deficiency of other specified B group vitamins; M19.90 Unspecified osteoarthritis, unspecified site; G43.909 Migraine, unspecified, not intractable, without status migrainosus; G40.909 Epilepsy, unspecified, not intractable, without status epilepticus; F98.8 Other specified behavioral and emotional disorders with onset usually occurring in childhood and adolescence; F90.9 Attention-deficit hyperactivity disorder, unspecified type; F41.9 Anxiety disorder, unspecified; F32.9 Major depressive disorder, single episode, unspecified; F42.9 Obsessive-compulsive disorder, unspecified; F41.0 Panic disorder [episodic paroxysmal anxiety]; F43.10 Post-traumatic stress disorder, unspecified; D64.9 Anemia, unspecified; G89.29 Other chronic pain; K66.9 Disorder of peritoneum, unspecified; M54.9 Dorsalgia, unspecified; Y83.8 Other surgical procedures as the cause of abnormal reaction of the patient, or of later complication, without mention of misadventure at the time of the procedure; F17.210 Nicotine dependence, cigarettes, uncomplicated; Z88.6 Allergy status to analgesic agent; Z79.899 Other long term (current) drug therapy; Z98.84 Bariatric surgery status
CPT/HCPCS: 36415; 36430; 74240; 74240-26; 80053; 82306; 82525; 82607; 82728; 82746; 82947; 83735; 84100; 84425; 84590; 84630; 84703; 85025; 85027; 86850; 86900; 86901; 86920; 86922; 88300; 88305; 88307; 93005; 94640; 94762; A9270-GY; C9113; J0171; J0330; J0694; J1100; J1170; J2020; J2185; J2405; J2704; J2710; J2795; J2916; J3010; J3410; J3411; J3420; J3475; J3490; J7050; J7120; J7121; J7620-GY; P9016; P9047; Q9967